=== PATIENT | male | born 1930 | race Caucasian/White ===

== ENCOUNTER 2017-01-25 07:05 | Inpatient (IN) | payer OTHER, BC ==
[2017-01-07 11:32] VITALS: BMI 22.0
--- NOTE | 2017-01-07 12:16 | PAT Medication Instructions ---
Service Date Jan 07, 2017. Current Home Medication List Amlodipine (Norvasc), 5 MG PO QAM Aspirin (Aspirin Ec), 81 MG PO QAM Atorvastatin (Atorvastatin Calcium), 40 MG PO 2XWK Cyanocobalamin (Cyanocobalamin), 1,000 MCG IM MONTHLY Ibuprofen (Advil), 200-400 MG PO HS Levothyroxine Sodium (Synthroid), 150 MCG PO QAM Multiple Vitamins W/ Minerals (Centrum), 1 TAB PO QAM Nebivolol Hcl (Bystolic), 5 MG PO QAM Saline ([address] [place]), 1 SPRAY JOSSIE PRN Medication Instructions For Your Scheduled Surgery Ibuprofen (Advil), 200-400 MG PO HS (per surgeon instructions) Cyanocobalamin (Cyanocobalamin), 1,000 MCG IM MONTHLY (okay to continue as directed) - Hold the following medications the morning of surgery: Multiple Vitamins W/ Minerals (Centrum), 1 TAB PO QAM - Take the following medications the morning of surgery with a sip of water: Saline ([address] [place]), 1 SPRAY JOSSIE PRN Nebivolol Hcl (Bystolic), 5 MG PO QAM Levothyroxine Sodium (Synthroid), 150 MCG PO QAM Atorvastatin (Atorvastatin Calcium), 40 MG PO 2XWK Amlodipine (Norvasc), 5 MG PO QAM Aspirin (Aspirin Ec), 81 MG PO QAM (okay to continue per surgeon) - Take the following medications as scheduled the night before surgery: Saline ([address] [place]), 1 SPRAY JOSSIE PRN If you have any questions please call us at [phone] (Deneen Santana PA-C ) or [phone] or [phone]
--- NOTE | 2017-01-07 13:03 | DIAGNOSTIC IMAGING REPORT ---
CHEST PREADMISSION(PA/LAT) HISTORY: Preop. COMPARISON: Chest 12/31/2015. FINDINGS: The lungs are clear. Cardiac silhouette is normal in size. No pleural effusions. No pneumothorax. IMPRESSION: No acute process. Electronically signed by: Kobi Velasquez M.D. 01/07/2017 1:02 PM Dictated Date/Time: 01/07/2017 12:59 PM
[2017-01-07 13:15] LABS: URINE APPEARANCE CLEAR (CLEAR); URINE BILIRUBIN NEG (NEG); URINE COLOR YELLOW; URINE EPITHELIAL CELL AUTO 0-5 /lpf (0-5); URINE NITRITE NEG (NEG); URINE SPECIFIC GRAVITY 1.012 (1.000-1.030); UROBILINOGEN NEG (NEG); ZZUR CULT IF INDIC CLEAN CATCH NO
[2017-01-07 13:18] LABS: INR 0.9 (0.9-1.1); PROTHROMBIN TIME (PATIENT) 10.1 SECONDS (9.0-12.0)
[2017-01-07 13:20] LABS: MANUAL MICROSCOPIC REQUIRED? NO; REVIEW REQ? NO
--- NOTE | 2017-01-22 08:44 | HISTORY & PHYSICAL EXAMINATION ---
DATE OF ADMISSION: 01/25/2017 CHIEF COMPLAINT: Left knee pain. HISTORY OF PRESENT ILLNESS: Mr. Campos is an 86-year-old male with a multiple year history of left knee pain. The patient states his pain is significantly worse over the last 2 months and is now dealing with moderate instability. He rates his pain a 5/10. He has pain with his daily activities. He has limited standing and walking tolerance. Pain is worse with weightbearing. The patient has had home exercise program and anti-inflammatories without relief. He has failed conservative treatment and is scheduled for left knee replacement. PAST MEDICAL HISTORY: Hypertension, heart disease, history of AFib. He denies heart disease or DVT. PAST SURGICAL HISTORY: Right TKA and cervical discectomy. SOCIAL HISTORY: The patient denies alcohol or tobacco use. He lives in a 2-story home. He is and retired. FAMILY HISTORY: Negative for DVT. MEDICATIONS: Amlodipine 5 mg, vitamin B12, Synthroid 150 mcg, Bystolic 5 mg, atorvastatin 10 mg, aspirin 81 mg, ibuprofen p.r.n. ALLERGIES: None. REVIEW OF SYSTEMS: See HPI. Ten other systems reviewed, all negative. PHYSICAL EXAMINATION: VITAL SIGNS: Height 5 foot 5. Weight 138 pounds. BMI is 23. GENERAL: This is a well-developed, well-nourished male who is alert and oriented x3. Mood and affect are appropriate. HEAD, EYES, EARS, NOSE, AND THROAT: Normocephalic, atraumatic. Mucous membranes are moist and intact. NECK: Supple without lymphadenopathy. HEART: Regular rate and rhythm without murmurs, rubs or gallops. LUNGS: Clear to auscultation without wheezes or rhonchi. ABDOMEN: Soft and nontender. Bowel sounds are equal and active. EXTREMITIES: No ecchymosis, redness or warmth. He has varus deformity. Range of motion is from 3-110 degrees with +1 laxity. He has crepitus with range of motion. He is neurovascularly intact with +5/5 strength. X-RAY EXAMINATION: AP and lateral views show joint space narrowing and osteophyte formation. IMPRESSION: Degenerative joint disease, left knee. PLAN: The patient will be admitted for a left total knee arthroplasty. We will plan on aspirin for DVT prophylaxis. The patient's PCP is Dr. Duran in [place]. He is doing outpatient physical therapy.
[2017-01-25] VITALS (8 sets, daily range): BP systolic 136–189; BP diastolic 63–97; PULSE 41–76; TEMP 36.3–36.4; O2SAT 96–100; Ht 165.1 cm; Wt 62.6 kg
[~2017-01-25] VITALS: Ht 165.1 cm; Wt 62.6 kg
[~2017-01-25 07:05] MED LIST: ACETAMINOPHEN 500 MG TAB PO SCH; AMLO-110 PO; ASPI81TA28 PO; BUPIVACAINE 0.5 % 5 MG/1 ML PF 10ML VIAL ONE; BYS/5 PO; CEFAZOLIN 2000 MG/60 ML D5W 60 ML IV SCH; CYNI1000 IM; CeleBREX 200 MG CAP PO SCH; DEXAMETHASONE 4 MG TAB PO SCH; FAMOTIDINE 20 MG TAB PO SCH; GABAPENTIN 300 MG CAP PO SCH; IBUP-1050 PO; LACTATED RINGER'S 1000ML 1,000 ML IV SCH; LACTATED RINGER'S 1000ML 500 ML IV ONE; LACTATED RINGER'S 1000ML IV SCH; LPT40 PO; METOCLOPRAMIDE HCL 10 MG TAB PO SCH; MULTTAB5 PO; OXYCODONE HCL 10 MG TABCR (OXYCONTIN) PO SCH; POLYMYXIN B SULFATE 100,000 UNITS in NSS 100ML IR SCH; ROPIVACAINE 5MG/ML 30 ML 150 MG, BUPIVACAINE/EPINEPHR 0.5% MPF 30 ML, KETOROLAC TROMETH... INFIL SCH; SALI0.6510 NAE; SYN150 PO; VANCOMYCIN INJ 400 MG in NSS 100ML IR SCH
--- NOTE | 2017-01-25 08:10 | History & Physical Bridge Note ---
H&P Re-Evaluation Bridge Note: I have examined the patient, reviewed the History & Physical and in the interval since the performance of the History & Physical I have noted the following changes of clinical significance: No changes noted
[2017-01-25] MEDS ORDERED: FENTANYL CITRATE INJ 50 MCG/1 ML 2 ML VIAL ONE (08:29)
[2017-01-25] MEDS ORDERED: MIDAZOLAM HCL 1 MG/ML 2ML VIAL ONE (08:29)
[2017-01-25] MEDS ORDERED: PROPOFOL IV EMULSION 10 MG/ML 20 ML VIAL IV ONE (08:29)
[2017-01-25] MEDS ORDERED: LIDOCAINE HCL 2% 2 ML VIAL (20MG/ML) ONE (08:29)
[2017-01-25] MEDS ORDERED: FENTANYL CITRATE INJ 50 MCG/1 ML 2 ML VIAL IV PRN (08:45)
[2017-01-25] MEDS ORDERED: EpHEDrine SULFATE INJ 50 MG/ML AMP IV PRN (08:45)
[2017-01-25] MEDS ORDERED: ATROPINE SULFATE 0.1 MG/ML 5ML SYR IV PRN (08:45)
[2017-01-25] MEDS ORDERED: ORTHO JOINT ANESTHETIC ONE (08:56)
[2017-01-25] MEDS ORDERED: BUPIVACAINE/EPINEPHRINE 0.25% 1:200,000 30 ML VIAL ONE (08:56)
[2017-01-25] MEDS ORDERED: POVIDONE-IODINE OP SOLN 30 ML BTL ONE (08:56)
[2017-01-25] MEDS ORDERED: GLYCOPYRROLATE INJ 0.2 MG/ML VIAL ONE (10:20)
[2017-01-25] MEDS: BACITRACIN 50000 UNIT VIAL ONE (10:47)
--- NOTE | 2017-01-25 10:54 | [facility] Post Operative Brief Note ---
Immediate Operative Summary Operative Date Jan 25, 2017. Pre-Operative Diagnosis Left Knee Degenerative Joint Disease Post-Operative Diagnosis Left Knee Degenerative Joint Disease Procedure(s) Performed Left Total Knee Arthroplasty, Cemented Surgeon Dr. Jeffrey Worrell Air Table Operator Surgeon(s) Valente Caputo PA-C Estimated Blood Loss 75 mL Findings DJD ACL DEF Specimens A: Left Knee Bone and Tissue Complication(s) None Disposition Recovery Room / PACU
[2017-01-25] MEDS ORDERED: DiphenhydrAMINE HCL 50 MG/ML VIAL IV PRN (11:00)
[2017-01-25] MEDS ORDERED: KETOROLAC TROMETHAMINE 15 MG/ML VIAL IV. PRN (11:00)
[2017-01-25] MEDS ORDERED: ONDANSETRON INJ 2 MG/ML 2 ML VIAL IV PRN (11:00)
[2017-01-25] MEDS ORDERED: SOD PHOSPHATE/SOD BIPHOSPHATE ENEMA 132 ML BTL PR PRN (11:00)
[2017-01-25] MEDS ORDERED: METOCLOPRAMIDE HCL INJ 5 MG/ML 2 ML VIAL IV PRN (11:00)
[2017-01-25] MEDS ORDERED: OXYCODONE HCL IR 5 MG TAB (IMMEDIATE RELEASE) PO PRN (11:00)
[2017-01-25] MEDS ORDERED: TRAMADOL HCL 50 MG TAB PO PRN (11:00)
[2017-01-25] MEDS ORDERED: ALUMINUM/MAGNESIUM/SIMETH (MAALOX MAX) 30 ML UDC PO PRN (11:00)
[2017-01-25] MEDS ORDERED: MAGNESIUM HYDROXIDE SUSP 30 ML UDC PO PRN (11:00)
[2017-01-25] MEDS ORDERED: MoRPHine SULFATE 2 MG/ML CARP IV PRN (11:00)
[2017-01-25] MEDS ORDERED: TAMSULOSIN HCL 0.4 MG CAP PO PRN (11:00)
[2017-01-25] MEDS ORDERED: ZOLPIDEM TARTRATE 5 MG TAB PO PRN (11:00)
[2017-01-25] MEDS ORDERED: BISACODYL 10 MG SUPP PR PRN (11:00)
--- NOTE | 2017-01-25 12:12 | DIAGNOSTIC IMAGING REPORT ---
LEFT KNEE 2 VIEWS History: Left total knee arthroplasty. Degenerative arthritis. Postop. FINDINGS: The patient is status post a left total knee arthroplasty. The hardware is intact. No fracture or dislocation. Surgical drains are in place. IMPRESSION: Left total knee arthroplasty. No evidence for hardware complication. Electronically signed by: Kobi Velasquez M.D. 01/25/2017 12:10 PM Dictated Date/Time: 01/25/2017 12:10 PM
--- NOTE | 2017-01-25 13:21 | Anesthesiology Progress Note ---
Anesthesia Post Op Note Date & Time Jan 25, 2017 at 13:20 Vital Signs Pain Intensity: 0 Vital Signs Past 12 Hours Date Time Temp Pulse Resp B/P Pulse Ox O2 Delivery O2 Flow Rate FiO2 01/25/17 13:09 41 19 150/72 100 Nasal Cannula 3.0 01/25/17 12:10 50 13 131/51 96 Nasal Cannula 2 01/25/17 12:00 36.4 59 14 125/53 100 Nasal Cannula 2 01/25/17 11:50 49 12 122/53 100 Mask 10 01/25/17 11:40 42 10 114/56 100 Mask 10 01/25/17 11:31 36.5 61 14 96/60 100 Mask 10 01/25/17 07:49 36.4 66 20 179/97 97 Room Air Notes Mental Status: alert / awake / arousable, participated in evaluation Pt Amnestic to Procedure: Yes Nausea / Vomiting: adequately controlled Pain: adequately controlled Airway Patency, RR, SpO2: stable & adequate BP & HR: stable & adequate Hydration State: stable & adequate Neuraxial Anesthesia: was administered, sensory block is resolving Anesthetic Complications: no major complications apparent
[2017-01-25] MEDS: TRANEXAMIC ACID INJ 1,000 MG in SODIUM CHLORIDE 0.9% 100ML 100 ML IV SCH ×2 (14:03→14:06)
[2017-01-25] MEDS: ACETAMINOPHEN 500 MG TAB PO SCH ×2 (14:06→21:33)
[2017-01-25] MEDS: CEFAZOLIN IV 1,000 MG in DEXTROSE 5% 50ML 50 ML IV SCH (17:38)
[2017-01-25] MEDS: D5W AND 1/2NSS + 20MEQ KCL 1,000 ML IV SCH ×2 (18:19→23:55)
--- NOTE | 2017-01-25 19:23 | OPERATIVE REPORT ---
DATE OF OPERATION: 01/25/2017 PREOPERATIVE DIAGNOSIS: Degenerative arthritis, left knee. POSTOPERATIVE DIAGNOSIS: Same. PROCEDURE: Left total knee with patient matched implant. SURGEON: Dr. Worrell. DRY CELL ASSEMBLY SUPERVISOR: PARESH Mccormack. ANESTHESIA: Spinal. BLOOD LOSS: 75 mL. REPLACEMENT FLUIDS: 1500 mL crystalloid. DRAINS: Hemovac x2. CULTURES: None. COMPLICATIONS: None. COMPONENTS USED: [employer] Knee System: Femur size 5, tibia size 4 x 10, patella size 35. NOTE: PARESH Mccormack was present and assisted throughout due to the complicated nature of this case. He helped with preparation and set up, first assisted throughout and personally closed the capsule, subcutaneous and skin layers and applied the postoperative dressing. DESCRIPTION OF PROCEDURE: Following satisfactory spinal, the patient was supine. A tourniquet was placed but not inflated. The lower extremity was prepared with ChloraPrep and draped sterilely. Following a surgical time-out, a midline incision was made with a trivector approach. The knee showed severe grade 4 changes in all compartments with absence of the anterior cruciate ligament. The posterior cruciate ligament was excised. The patient matched femoral block was applied. Femoral distal rotation and resection were set and completed. The 4-in-1 block was used to finish preparation of the femur. The patient matched tibial block was applied. Tibial resection was completed. Patella was freehand cut. Soft tissue balancing was completed and a trial reduction showed good tensioning stability on the collateral ligaments, stable range of motion, and the patella tracked well. The deformity was corrected nicely. The trial components were removed. The capsule was prepared with the orthopedic cocktail and after irrigation, the components were cemented using Simplex G cement. A Betadine soak was performed. When the cement had hardened, the Betadine was irrigated. Two drains were placed. The arthrotomy was closed with a running suture of 0 V-Loc. Subcutaneous tissues with 2-0 Vicryl and the skin with a running subcuticular stitch of 3-0 V-Loc. Dermabond and a dry dressing were applied. The patient was returned to his bed in stable condition. I attest to the content of the Intraoperative Record and any orders documented therein. Any exceptio ns are noted below.
[2017-01-25] MEDS: ASPIRIN 81 MG ECTAB PO SCH (20:57)
[2017-01-25] MEDS: OXYCODONE HCL 10 MG TABCR (OXYCONTIN) PO SCH (20:58)
[2017-01-25] MEDS: SENNA 8.6 MG TAB PO SCH (21:33)
[2017-01-26] VITALS (7 sets, daily range): BP systolic 163–183; BP diastolic 61–83; PULSE 66–90; TEMP 36.3–36.8; O2SAT 95–100
[2017-01-26] MEDS: CEFAZOLIN IV 1,000 MG in DEXTROSE 5% 50ML 50 ML IV SCH (01:48)
[2017-01-26] MEDS: ACETAMINOPHEN 500 MG TAB PO SCH ×3 (05:47→21:33)
[2017-01-26] MEDS: LEVOTHYROXINE 150 MCG TAB PO SCH (05:47)
[2017-01-26 05:55] LABS: MEAN CELL VOLUME 87.2 fL (80-100); MEAN CORPUSCULAR HEMOGLOBIN 29.4 pg (25-34); MEAN CORPUSCULAR HGB CONC 33.8 g/dl (32-36); MEAN PLATELET VOLUME 9.8 fL (7.4-10.4); PLATELET COUNT 125 K/uL (130-400); RED BLOOD COUNT 3.67 M/uL (4.7-6.1); WHITE BLOOD COUNT 11.79 K/uL (4.8-10.8)
[2017-01-26 06:20] LABS: CALCIUM 8.8 mg/dl (8.5-10.1); CREATININE 0.91 mg/dl (0.60-1.40); POTASSIUM 4.4 mmol/L (3.5-5.1)
--- NOTE | 2017-01-26 07:53 | Orthopedic Progress Note ---
Orthopedic Progress Note Date of Service Jan 26, 2017. Subjective Post OP Day: 1 Reports: feeling well, Denies: SOB, calf pain, chest pain, light headedness, nausea / vomiting Additional Notes: PATIENT WITH ELEVATED BPS THIS AM. SYSTOLICS 170s-180s. PATIENT STATES BP IS CHRONICALLY HIGH. HIS INITIAL PRESSURE WAS 174 ON ADMISSION. PATIENT HAS TAKEN AMLODPINE AT 10MG IN THE PAST AND THAT SEEMED TO HELPED. AEROBICS TEACHER IS DR. MOTA. PATIENT WOULD LIKE TO GO HOME TODAY. Objective calves soft nontender, N/V intact, dressing C/D/I, A&O x3, toes mobile, hemovac drainage (170/60 cc per shift) Date Time Temp Pulse Resp B/P Pulse Ox O2 Delivery O2 Flow Rate FiO2 01/26/17 07:39 36.4 82 16 181/79 100 Room Air 01/26/17 07:30 69 98 Room Air 01/26/17 07:23 Room Air 01/26/17 03:40 36.3 73 16 178/83 97 Room Air 01/25/17 23:10 36.3 62 16 178/80 96 Room Air 01/25/17 21:36 179/86 01/25/17 19:50 Room Air 01/25/17 19:28 36.3 76 18 189/79 99 Room Air 01/25/17 16:30 Room Air 01/25/17 15:29 36.3 50 16 171/73 100 Nasal Cannula 3.0 01/25/17 14:30 49 16 174/73 100 Nasal Cannula 2.0 01/25/17 13:09 41 19 150/72 100 Nasal Cannula 3.0 01/25/17 12:30 36.3 50 10 136/63 100 Nasal Cannula 2.0 01/25/17 12:30 Room Air 01/25/17 12:30 Nasal Cannula 01/25/17 12:10 50 13 131/51 96 Nasal Cannula 2 01/25/17 12:00 36.4 59 14 125/53 100 Nasal Cannula 2 01/25/17 11:50 49 12 122/53 100 Mask 10 01/25/17 11:40 42 10 114/56 100 Mask 10 01/25/17 11:31 36.5 61 14 96/60 100 Mask 10 01/25/17 07:49 36.4 66 20 179/97 97 Room Air Laboratory Results 24 Hours: Test 01/26/17 05:28 Hematocrit 32.0 % Hemoglobin 10.8 g/dL Assessment & Plan Assessment: POD#1 SP LEFT TKA HYPERTENSION Plan: HTN- INCREASED AMLODIPINE TO 10MG DAILY. WILL RECHECK HIS PRESSURES LATER TODAY. WOULD LIKE HIM TO BE DOWN TO AT LEAST 150s BEFORE HE CAN GO HOME. IF NOT RESPONDING, MAY CONSULT WITH DR. MOTA. Inhouse Planning Pain Management: Celebrex, Oxycontin, PO Tylenol, Oxy IR DVT Prophylaxis: TEDs, SCDs, ASA Discharge Planning Discharge Planning: home with oppt (POSSIBLE DC HOME TODAY IF BP IMPROVES.)
--- NOTE | 2017-01-26 07:55 | Discharge Instructions ---
Discharge Instructions Date of Service Jan 26, 2017. Admission Reason for Admission: Left Knee Degenerative Arthritis Discharge Discharge Diagnosis / Problem: SP LEFT TKA Discharge Goals Goal(s): Decrease discomfort, Improve function, Increase independence Activity Recommendations Activity Limitations: per Instructions/Follow-up section . Instructions / Follow-Up Instructions / Follow-Up ACTIVITY RECOMMENDATIONS: SELF CARE INSTRUCTIONS AFTER TOTAL KNEE REPLACEMENT A. You may need to continue a physical therapy program after discharge from the hospital. There are several options available to you. Your doctor will assist you in selecting the best one for you. 1. An out-patient facility 2 to 3 times a week for therapy or home therapy. 2. Continue working on all exercises taught to you in the hospital. Your goals should be to increase bending of your knee to 90 degrees and beyond and to fully straighten your knee. B. You may progress at your own pace from walking with a walker or crutches to a cane; then to no assistive devices. C. Make walking a part of your daily routine. Be up as much as comfortable with rest periods throughout the day. Rest with leg elevation is very important. Use the ice wrap frequently for the first 3-4 weeks. D. There are no restrictions on activities. You may ride in a car, shop, participate in machine feeder raw stock and all social activities. E. Wear the long elastic stockings (MELISSA hose) 20 hours a day for 2 weeks after surgery. They can be removed several times a day for laundering and for a bath. F. You may shower, no tub baths until cleared by your doctor. SPECIAL CARE INSTRUCTIONS: VERY IMPORTANT TO READ AND REVIEW A. There are a few signs you need to watch for after you are home. Call [facility] if you notice any of the followin. Increased severe knee pain. Some pain is expected especially when you exercise. 2. Increased swelling in your leg or knee; pain or swelling of the calf muscle in either lower leg. 3. Any fluid drainage from the incision. 4. Shortness of breath or chest pain. B. Please call [facility] at if you have any concerns or questions about your operation or recovery. The doctor or his nurse will return your call promptly. C. You must take antibiotics before dental work, bladder, bowel or other surgery. Your doctor will provide you with a permanent care to carry describing this precaution. IMPORTANT: * REMEMBER TO TAKE ASPIRIN, 81 MG, TWICE DAILY FOR 4 WEEKS UNLESS OTHERWISE DIRECTED. THIS IS YOUR BLOOD THINNER. * HIGH RISK PATIENTS MAY BE PRESCRIBED A STRONGER BLOOD THINNER. THIS WILL BE PROVIDED AT DISCHARGE. * CALL IF INCREASED PAIN, REDNESS, DRAINAGE OR FEVER GREATER THAT 101. * WEAR MELISSA HOSE 20 HOURS PER DAY FOR 2 WEEKS. DERMABOND Prineo- This is a mesh tape dressing that is covered with glue. It should remain in place until the incision is properly healed, usually 10-14 days. This dressing is designed to naturally slough off. You may trim the excess mesh tape as it peels off. Incision may be briefly wet in a shower. Dry immediately by blotting with a clean, dry towel. Do not bath or swim until instructed by your doctor. Do not scratch, rub, or pick at the dressing. Do not apply any topical ointments or lotions until dressing is completely removed and/or instructed by your doctor. There may be a small piece of suture material at one end of your incision. Do not pull or trim this. If it is bothersome or catching on clothing, you may cover it with a band-aid. FOLLOW UP VISIT: If appointment is not already scheduled: Please call [facility] to make a follow-up appointment for 2 weeks after your surgery at . Current Hospital Diet Patient's current hospital diet: Regular Diet Discharge Diet Recommended Diet: Regular Diet Procedures Procedures Performed: Left Total Knee Arthroplasty, Cemented Pending Studies Studies pending at discharge: no Medical Emergencies . Who to Call and When: Medical Emergencies: If at any time you feel your situation is an emergency, please call 911 immediately. . Non-Emergent Contact Non-Emergency issues call your: Surgeon . "Provider Documentation" section prepared by Manuela Magana. VTE Core Measure Inpt VTE Proph given/why not?: Other Anticoagulation, T.E.DAustin Ferris, SCD's [place] Drug Monitoring Program Search Results: patient reviewed within database, no issues identified
[2017-01-26] MEDS ORDERED: SNK PO (08:01)
[2017-01-26] MEDS ORDERED: RXC5 PO (08:01)
[2017-01-26] MEDS ORDERED: ACET-1138 PO (08:01)
[2017-01-26] MEDS ORDERED: ASPI81TA28 PO (08:01)
[2017-01-26] MEDS ORDERED: ONDA8TAB6 PO (08:01)
[2017-01-26] MEDS ORDERED: MORP-157 PO (08:01)
[2017-01-26] MEDS ORDERED: CLB200 PO (08:01)
[2017-01-26] MEDS: MULTIVITAMIN TAB PO SCH (08:19)
[2017-01-26] MEDS: NEBIVOLOL HCL 5 MG TAB PO SCH (08:19)
[2017-01-26] MEDS: ASPIRIN 81 MG ECTAB PO SCH ×2 (08:20→21:31)
[2017-01-26] MEDS: PANTOprazole SOD 40 MG TAB PO SCH (08:20)
[2017-01-26] MEDS: AMLODIPINE BESYLATE 5 MG TAB PO SCH (08:20)
[2017-01-26] MEDS: OXYCODONE HCL 10 MG TABCR (OXYCONTIN) PO SCH ×2 (08:21→21:30)
[2017-01-26] MEDS ORDERED: AMLODIPINE BESYLATE 5 MG TAB PO SCH (09:00)
[2017-01-26] MEDS: D5W AND 1/2NSS + 20MEQ KCL 1,000 ML IV SCH (10:20)
--- NOTE | 2017-01-26 10:27 | Anesthesiology Progress Note ---
Anesthesia Post Op Note Date & Time Jan 26, 2017 at 10:26 Vital Signs Pain Intensity: 0.0 Vital Signs Past 12 Hours Date Time Temp Pulse Resp B/P Pulse Ox O2 Delivery O2 Flow Rate FiO2 01/26/17 07:39 36.4 82 16 181/79 100 Room Air 01/26/17 07:30 69 98 Room Air 01/26/17 07:23 Room Air 01/26/17 03:40 36.3 73 16 178/83 97 Room Air 01/25/17 23:10 36.3 62 16 178/80 96 Room Air Notes Mental Status: alert / awake / arousable, participated in evaluation Pt Amnestic to Procedure: Yes Nausea / Vomiting: adequately controlled Pain: adequately controlled Airway Patency, RR, SpO2: stable & adequate BP & HR: stable & adequate Hydration State: stable & adequate Neuraxial Anesthesia: sensory block resolved Anesthetic Complications: no major complications apparent
--- NOTE | 2017-01-26 17:00 | Cardiology Consultation ---
Cardiology Consultation Date of Consultation: Jan 26, 2017. Requesting Physician: Dr. Worrell Reason for Consultation: Perioperative management, hypertension History of Present Illness Mr. Campos is an 86-year-old male with a medical history significant for paroxysmal atrial fibrillation, coronary artery disease, hypertension and dyslipidemia who underwent left total knee replacement yesterday with Dr. Worrell. Cardiology consulted for perioperative management and hypertension. Patient followed by Dr. Hewitt as an outpatient and was last seen in cardiology clinic 2 weeks ago for preoperative assessment. At that time patient was doing well and was largely asymptomatic. Echocardiogram was repeated which showed normal biventricular function with only mild valvular heart disease. No additional cardiac testing thought necessary. Surgery yesterday afternoon was uncomplicated. Since then patient has been hypertensive to the 170s to 180s. He was restarted on his amlodipine which was increased from 5 to 10 mg and his prior bystolic 5 mg daily. He has been asymptomatic post-op with no chest pain, shortness of breath, palpitations or heart failure symptoms. Prior Cardiac History: - Atrial fibrillation-- prior cardioversion in 06/2014. Previously on Pradaxa, not on recently - CAD - cardiac cath in 2004 and 2011 - - in 2011 for OR: LM 20%; LAD 20% proximal, 1st diagonal 50%; Ramus large vessel with 90% proximal treated with POBA (unable to fully dilated, no stent placed); LCx 30% ostial; RCA 60-70% mid segment. Family History Hypertension Social History Smoking Status: Former Smoker History of Alcohol Use: No Review of Systems Constitutional: No fever Respiratory: No cough, No shortness of breath Cardiac: No chest pain, No edema Abdomen: No nausea, No pain Heme: No abnormal bleeding/bruising Endo: No fatigue Skin: No rash All Other Systems: Reviewed and Negative Allergies Coded Allergies: No Known Allergies (Verified , 01/25/17) Medications Current Inpatient Medications Medications (Trade) Dose Ordered Sig/Giovana Route Start Time Stop Time Status Last Admin Dose Admin Celecoxib (CeleBREX CAP) 200 mg QD@08 PO 01/28/17 08:00 02/27/17 07:59 Oxycodone HCl (Roxicodone Immediate Rel Tab) 1 TABLET FOR PAIN RATING... Q4H PRN PO 01/25/17 11:00 02/08/17 10:59 Oxycodone HCl (Oxycontin Tab) 10 mg Q12 PO 01/25/17 21:00 02/08/17 20:59 01/26/17 08:21 10 MG Morphine Sulfate (MoRPHine SULFATE INJ) 2 mg Q2HWA PRN IV 01/25/17 11:00 02/08/17 10:59 Acetaminophen (Tylenol Tab) 1,000 mg Q8H PO 01/25/17 14:00 02/24/17 13:59 01/26/17 14:13 1,000 MG Magnesium Hydroxide (Milk Of Magnesia Susp) 30 ml Q6H PRN PO 01/25/17 11:00 02/24/17 10:59 Bisacodyl (Dulcolax Supp) 10 mg DAILY PRN NE 01/25/17 11:00 02/24/17 10:59 Sodium Biphosphate/ Sodium Phosphate (Fleet Enema) 132 ml DAILY PRN NE 01/25/17 11:00 02/24/17 10:59 Senna (Senokot Tab) 17.2 mg HS PO 01/25/17 21:00 02/24/17 20:59 01/25/17 21:33 17.2 MG Diphenhydramine HCl (Benadryl Cap) 25 mg Q8H PRN PO 01/25/17 11:00 02/24/17 10:59 Diphenhydramine HCl (Benadryl Inj) 25 mg Q8H PRN IV 01/25/17 11:00 02/24/17 10:59 Al Hydrox/Mg Hydrox/Simethicone (Maalox Max Susp) 15 ml Q4H PRN PO 01/25/17 11:00 02/24/17 10:59 Zolpidem Tartrate (Ambien Tab) 5 mg HSZ PRN PO 01/25/17 11:00 02/24/17 10:59 Multivitamins (Multivitamin Tab) 1 tab QAM PO 01/26/17 09:00 02/25/17 08:59 01/26/17 08:19 1 TAB Ondansetron HCl (Zofran Inj) 4 mg Q6H PRN IV 01/25/17 11:00 02/24/17 10:59 Metoclopramide HCl (Reglan Inj) 10 mg Q6H PRN IV 01/25/17 11:00 02/24/17 10:59 Pantoprazole Sodium (Protonix Tab) 40 mg QAM PO 01/26/17 09:00 02/25/17 08:59 01/26/17 08:20 40 MG Tamsulosin HCl (Flomax Cap) 0.4 mg QAM PRN PO 01/25/17 11:00 02/24/17 10:59 Tramadol HCl (Ultram Tab) 1 tablet for pain rating... Q4H PRN PO 01/25/17 11:00 02/24/17 10:59 Ketorolac Tromethamine (Toradol Inj) 15 mg Q6H PRN IV. 01/25/17 11:00 01/27/17 10:59 Aspirin (Ecotrin Tab) 81 mg BID PO 01/25/17 21:00 02/24/17 20:59 01/26/17 08:20 81 MG Levothyroxine Sodium (Synthroid Tab) 150 mcg DAILYBB PO 01/26/17 06:00 02/25/17 05:59 01/26/17 05:47 150 MCG Nebivolol (Bystolic Tab) 5 mg QAM PO 01/26/17 09:00 02/25/17 08:59 01/26/17 08:19 5 MG Amlodipine Besylate (Norvasc Tab) 10 mg QAM PO 01/26/17 09:00 02/25/17 08:59 01/26/17 08:20 10 MG Physical Exam Vital Signs Past 12 Hours Date Time Temp Pulse Resp B/P Pulse Ox O2 Delivery O2 Flow Rate FiO2 01/26/17 15:04 36.4 67 16 172/71 98 Room Air 01/26/17 14:01 90 100 01/26/17 12:40 36.6 74 16 183/73 99 Room Air 01/26/17 07:39 36.4 82 16 181/79 100 Room Air 01/26/17 07:30 69 98 Room Air 01/26/17 07:23 Room Air Head: normocephalic ENMT: normal ENT inspection Neck: supple Lungs: Respiratory effort: no dyspnea, good air movement Auscultation: no wheezing, no rales/crackles Cardiovascular: Heart Auscultation: RRR, II/ MALIA Peripheral Pulses: Radial Pulse: normal on the left, normal on the right Dorsalis Pedis Pulse: normal on the left, normal on the right Abdomen: Inspection & Palpation: soft, no tenderness, guarding & rebound Musculoskeletal: normal Extremities: no edema, pertinent finding (Left lower extremity dressing in place. Minimal distal edema. ) Neurologic: Cranial Nerves: grossly intact Sensation: grossly intact Data Laboratory Results: Last 24 Hours Test 01/26/17 05:28 White Blood Count 11.79 K/uL Red Blood Count 3.67 M/uL Hemoglobin 10.8 g/dL Hematocrit 32.0 % Mean Corpuscular Volume 87.2 fL Mean Corpuscular Hemoglobin 29.4 pg Mean Corpuscular Hemoglobin Concent 33.8 g/dl RDW Standard Deviation 43.9 fL RDW Coefficient of Variation 13.6 % Platelet Count 125 K/uL Mean Platelet Volume 9.8 fL Sodium Level 139 mmol/L Potassium Level 4.4 mmol/L Chloride Level 106 mmol/L Carbon Dioxide Level 27 mmol/L Anion Gap 6.0 mmol/L Blood Urea Nitrogen 19 mg/dl Creatinine 0.91 mg/dl Est Creatinine Clear Calc Drug Dose 52.6 ml/min Estimated GFR () 89.4 Estimated GFR (Non- 77.1 BUN/Creatinine Ratio 21.0 Random Glucose 169 mg/dl Calcium Level 8.8 mg/dl EK01/07/2017 - Sinus bradycardia with left axis deviation. Assessment & Plan 1. Post-operative Hypertension 2. CAD s/p prior PTCA to proximal Ramus, moderate to severe residual RCA disease 3. Paroxysmal AF 4. Dyslipidemia Patient with elevated SBPs to 170s-180s today post total knee replacement yesterday. Amlodipine restarted this AM at 10mg up from home 5. Continued on prior bystolic. Patient asymptomatic with pressure and suspect elevation secondary to post- operative stress/discomfort. Suspect BP will continue to improve as recovers from surgery Recommendations -- - From a cardiac standpoint OK for discharge when orthopedic issues resolved and can f/up next week for BP check. - Continue Amlodipine 10 mg daily -- effect of increased dose may take a day or 2 to see - Continue bystolic 5 mg daily - prior sinus bradycardia pre-op so would hold- off on increasing dose. - If staying overnight and BP persistently elevated >170s would add HCTZ 25 mg - Continue home statin, ASA - Routine DVT prophylaxis Will continue to follow if stays overnight. Thank you for allowing us to participate in the care of this patient. Please contact with any questions.
[2017-01-26] MEDS: SENNA 8.6 MG TAB PO SCH (21:31)
[2017-01-27] MEDS: LEVOTHYROXINE 150 MCG TAB PO SCH (05:59)
[2017-01-27] MEDS: ACETAMINOPHEN 500 MG TAB PO SCH (05:59)
[2017-01-27 07:23] VITALS: BP 168/69; PULSE 74; TEMP 36.3; O2SAT 94
--- NOTE | 2017-01-27 08:23 | Orthopedic Progress Note ---
Orthopedic Progress Note Date of Service Jan 27, 2017. Subjective Post OP Day: 2 Reports: feeling well, Denies: SOB, calf pain, chest pain, light headedness, nausea / vomiting Additional Notes: BP STILL ELEVATED, BUT IN THE 160S TODAY. NO OTHER COMPLAINTS Objective Date Time Temp Pulse Resp B/P Pulse Ox O2 Delivery O2 Flow Rate FiO2 01/27/17 07:23 36.3 74 18 168/69 94 Room Air 01/26/17 23:10 Room Air 01/26/17 23:00 36.8 66 16 163/61 95 Room Air 01/26/17 16:30 Room Air 01/26/17 15:04 36.4 67 16 172/71 98 Room Air 01/26/17 14:01 90 100 01/26/17 12:40 36.6 74 16 183/73 99 Room Air Assessment & Plan Assessment: POD#2 SP LEFT TKA HYPERTENSION Plan: HTN- INCREASED AMLODIPINE TO 10MG DAILY. APPRECIATE CARDIAC INPUT. BP CHECK WITH PCP/CARDIO WITHIN ONE WEEK Inhouse Planning Pain Management: Celebrex, Oxycontin, PO Tylenol, Oxy IR DVT Prophylaxis: TEDs, SCDs, ASA Discharge Planning Discharge Planning: home with oppt (POSSIBLE DC HOME TODAY IF BP IMPROVES.)
[2017-01-27] MEDS ORDERED: AMLO-110 PO (08:24)
[2017-01-27] MEDS: ASPIRIN 81 MG ECTAB PO SCH (08:54)
[2017-01-27] MEDS: MULTIVITAMIN TAB PO SCH (08:54)
[2017-01-27] MEDS: NEBIVOLOL HCL 5 MG TAB PO SCH (08:55)
[2017-01-27] MEDS: AMLODIPINE BESYLATE 5 MG TAB PO SCH (08:55)
[2017-01-27] MEDS: OXYCODONE HCL 10 MG TABCR (OXYCONTIN) PO SCH (08:57)
[2017-01-27] MEDS: PANTOprazole SOD 40 MG TAB PO SCH (08:57)
[2017-01-27 10:19] VITALS: BP 168/69; PULSE 74; TEMP 36.3; O2SAT 94
[2017-01-28] MEDS ORDERED: CeleBREX 200 MG CAP PO SCH (08:00)
--- NOTE | 2017-02-01 17:48 | DISCHARGE SUMMARY ---
DISCHARGE DIAGNOSIS: Degenerative joint disease, left knee. SECONDARY DIAGNOSES: Hypertension, heart disease, history of atrial fibrillation. CONSULTS: Dr. Elias Elaine. COMPLICATIONS: None. PROCEDURES: Left total knee arthroplasty performed by Dr. Johnathon Worrell on 01/25/2017. BRIEF HISTORY OF PRESENT ILLNESS: As dictated in the history and physical. HOSPITAL SUMMARY: The patient was admitted on the above date and had the above-noted surgery performed which he tolerated well. On the first postoperative day, he was feeling well. He had no shortness breath, calf pain or chest pain, no lightheadedness. The patient had elevated blood pressures that morning with a systolic BPs in the 170s-180s range. The patient stated that he has chronically high and initial pressure was 174 on admission. The patient has taken amlodipine 10 mg in the past which seemed to help. Calves are soft, nontender, neurovascularly intact. Dressings were clean, dry and intact. Toes were mobile. Hemoglobin was 10.8 and he was started on physical therapy protocol and continued on DVT prophylaxis and pain management. Pressures continued to remain high, and a consult for cardiology was placed. Dr. Elaine saw the patient on the 1st postoperative day and recommendations were made to continue amlodipine 10 mg daily, and continue his Bystolic 5 mg p.o. daily and follow up for a blood pressure check within the next week with Dr. Hewitt. By second postoperative day, he was feeling well and had no complaints. Systolic blood pressures were in the 60s range from the morning. He was otherwise remaining fine and progressing with his physical therapy and it was felt he could be discharged to home. For further review, please see chart. LABORATORY AND X-RAY DATA: As per chart. DISCHARGE INSTRUCTIONS: The patient was discharged to home in satisfactory condition on 01/27/2017. DIET: Regular. ACTIVITY: Follow TK instruction sheets and special care instructions as noted and follow up with Dr. Johnathon Worrell in 2 weeks. The patient to call for appointment if one has not been made for you. The patient to also followup with Dr. Hewitt for blood pressure check within the next week. DISCHARGE MEDICATIONS: Acetaminophen 1000 mg p.o. q. 8 hours, Celebrex 200 mg p.o. daily for 30 days, MS Contin 15 mg p.o. q. 12 hours, Zofran 8 mg p.o. q. 8 hours p.r.n., oxycodone 5-10 mg p.o. q. 4 hours p.r.n., senna 17.2 mg p.o. at bedtime. Resume home meds as listed with changes in amlodipine from 5-10 mg p.o. q.a.m., aspirin 81 mg p.o. b.i.d. for 30 days and after 30 days, resume once daily dosing and stop taking ibuprofen.
== END 2017-01-27 12:14 | disposition home or self-care (01) | DRG 470 ==
LOC: ENRESERVTM → ENRESERVDT → C.ACU 07:05 → C.3E 08:00
PROVIDERS: ADMIT Orthopaedic Surgery; ATTEND Orthopaedic Surgery
PROC: 0SRD0J9 Replacement of Left Knee Joint with Synthetic Substitute, Cemented, Open Approach (ICD-10-PCS; principal; 2017-01-25 09:30)
DX: M17.12 Unilateral primary osteoarthritis, left knee (principal); M21.162 Varus deformity, not elsewhere classified, left knee; I10 Essential (primary) hypertension; I48.0 Paroxysmal atrial fibrillation; I25.10 Atherosclerotic heart disease of native coronary artery without angina pectoris; E78.5 Hyperlipidemia, unspecified; D64.9 Anemia, unspecified; I25.2 Old myocardial infarction; Z87.891 Personal history of nicotine dependence; Z96.651 Presence of right artificial knee joint; Z79.82 Long term (current) use of aspirin; Z79.899 Other long term (current) drug therapy; Z98.61 Coronary angioplasty status